=== PATIENT | male | born 1995 | race Caucasian/White ===

== ENCOUNTER 2017-11-20 15:28 | Emergency (ER) | payer OTHER ==
[~2017-11-20] VITALS: Ht 177.8 cm; Wt 62.1 kg
[2017-11-20 15:34] VITALS: Ht 177.8 cm; Wt 62.1 kg
[2017-11-20] MEDS ORDERED: ONDANSETRON INJ 2 MG/ML 2 ML VIAL IV STA (15:53)
--- NOTE | 2017-11-20 15:55 | EMERGENCY ROOM VISIT NOTE ---
ED Visit Note First contact with patient: 15:40 This Patient was discussed with the physician cataloging assistant, Marcelo Kline PA-C. The pertinent historical and physical exam findings were confirmed. I agree with the studies ordered and with the interpretations of these studies. I agree with the disposition and care plan.
[2017-11-20] MEDS ORDERED: MoRPHine SULFATE 4 MG/ML 1 ML CARP\\VIAL IV ONE (16:00)
[2017-11-20] MEDS ORDERED: SODIUM CHLORIDE 0.9% 1000ML 1,000 ML IV ONE (16:00)
[2017-11-20 16:08] LABS: BASO % 0.2 %; BASO ABS # 0.02 K/uL (0-0.2); EOS % 0.2 %; EOS ABS # 0.02 K/uL (0-0.5); HEMATOCRIT 42.4 % (42-52); HEMOGLOBIN 15.4 g/dL (14.0-18.0); IG# 0.01 K/uL (0.00-0.02); LYMPH % 13.8 %; LYMPH ABS # 1.35 K/uL (1.2-3.4); MEAN CELL VOLUME 87.2 fL (80-100); MEAN CORPUSCULAR HEMOGLOBIN 31.7 pg (25-34); MEAN CORPUSCULAR HGB CONC 36.3 g/dl (32-36); MEAN PLATELET VOLUME 9.8 fL (7.4-10.4); MONO ABS # 0.88 K/uL (0.11-0.59); NEUT % 76.7 %; NEUT ABS # 7.49 K/uL (1.4-6.5); PLATELET COUNT 155 K/uL (130-400); RED CELL DISTRIBUTION WIDTH CV 12.2 % (11.5-14.5); RED CELL DISTRIBUTION WIDTH SD 39.5 fL (36.4-46.3); WHITE BLOOD COUNT 9.77 K/uL (4.8-10.8)
[2017-11-20] MEDS ORDERED: CIPROFLOXACIN 400MG / 200ML D5W IV ONE (16:30)
[2017-11-20 16:34] LABS: ALBUMIN 4.3 gm/dl (3.4-5.0); CALCIUM 8.8 mg/dl (8.5-10.1); CREATININE 0.85 mg/dl (0.60-1.40); POTASSIUM 3.4 mmol/L (3.5-5.1)
--- NOTE | 2017-11-20 16:35 | DIAGNOSTIC IMAGING REPORT ---
TESTICULAR ULTRASOUND HISTORY: right testicle pain COMPARISON: None. FINDINGS: Right testis: 3.0 x 4.2 x 2.8 cm. The testis is diffusely heterogeneous and does not demonstrate color flow. Therefore, this is consistent with testicular torsion. The epididymis is not well visualized. Trace hydrocele. Left testis: 4.2 x 3.0 x 2.8 cm. There are no intratesticular masses. Normal color flow. No hydrocele. The epididymis is unremarkable. IMPRESSION: Diffusely heterogeneous and abnormal appearing right testis without demonstrable color flow. Therefore, this is consistent with testicular torsion. These findings were discussed with the patient's physician assistant hairstylist, Marcelo Kline, at 4:33 PM on 11/20/2017. Electronically signed by: Lee Cardenas M.D. 11/20/2017 4:33 PM Dictated Date/Time: 11/20/2017 4:30 PM
[2017-11-20 16:39] LABS: TOTAL PROTEIN 7.9 gm/dl (6.4-8.2)
[2017-11-20] MEDS ORDERED: LIDOCAINE HCL 1% 20 ML VIAL ONE (16:40)
[2017-11-20] MEDS ORDERED: CEFAZOLIN SOD 1 GM VIAL ONE (16:41)
[2017-11-20] MEDS ORDERED: LIDOCAINE HCL 2% 2 ML VIAL (20MG/ML) ONE (16:42)
[2017-11-20] MEDS ORDERED: FENTANYL CITRATE INJ 50 MCG/1 ML 2 ML VIAL ONE ×2 (16:42→17:54)
[2017-11-20] MEDS ORDERED: PROPOFOL IV EMULSION 10 MG/ML 20 ML VIAL IV ONE (16:42)
[2017-11-20] MEDS ORDERED: MIDAZOLAM HCL 1 MG/ML 2ML VIAL ONE (16:42)
[2017-11-20 16:45] VITALS: O2SAT 100
[2017-11-20] MEDS ORDERED: CIPROFLOXACIN 400MG / 200ML D5W ONE (16:54)
[2017-11-20] MEDS ORDERED: ATROPINE SULFATE 0.1 MG/ML 5ML SYR IV PRN (17:15)
[2017-11-20] MEDS ORDERED: EpHEDrine SULFATE INJ 50 MG/ML AMP IV PRN (17:15)
[2017-11-20] MEDS ORDERED: HYDROmorphone INJ 1 MG/ML SYR IV PRN (17:15)
[2017-11-20] MEDS ORDERED: FENTANYL CITRATE INJ 50 MCG/1 ML 2 ML VIAL IV PRN (17:15)
[2017-11-20] MEDS ORDERED: ONDANSETRON INJ 2 MG/ML 2 ML VIAL IV PRN (17:15)
--- NOTE | 2017-11-20 17:17 | History and Physical ---
History & Physical Date Nov 20, 2017. Chief Complaint 22-year-old white male with a 2 day history of right testicular pain and swelling. He said Monday morning he awoke and had right testicular pain which was severe he said he was able to walk around and the pain got somewhat less again came back. He denies any voiding problems. The pain became severe enough that he came to the emergency room. Scrotal ultrasound was done which shows what appears to be a right testicular torsion. There is no blood flow to the right testicle left testicle looks normal History of Present Illness The patient is a 22 year old male with complaints of Additional History Hepatic Disease: No Endocrine Disorder: No Kidney Disease: No Hypertension: No Heart Disease: No Bleeding Tendencies: No Infectious Diseases: No Allergies Coded Allergies: No Known Allergies (Unverified , 11/20/17) Home Medications No Active Prescriptions or Reported Meds Physical Examination Skin: warm/dry Eyes: normal inspection ENT: normal ENT inspection Head: normocephalic, atraumatic Neck: supple Respiratory/Chest: lungs clear, normal breath sounds, no respiratory distress Cardiovascular: regular rate, rhythm, no murmur Abdomen / GI: normal bowel sounds Addiitonal Comments: Right testicle is extremely tender and swollen left side is normal Diagnosis Assessment Testicular torsion Plan of Treatment Plan We will take patient to the OR for emergent right scrotal exploration possible orchidopexy and left orchidopexy I did explain to him that after 48 hours the testicle may not be viable if it appears that there is no opportunity to salvage the right testicle we would do an orchiectomy on that side and then do a left orchidopexy described the procedure including the risks and benefits and all of his questions were answered he agrees to proceed
[2017-11-20] MEDS ORDERED: DEXAMETHASONE SOD INJ 4 MG/ML VIAL ONE (17:49)
[2017-11-20] MEDS ORDERED: ONDANSETRON INJ 2 MG/ML 2 ML VIAL ONE (17:49)
[2017-11-20] MEDS ORDERED: MEPERIDINE HCL 25 MG/ML CARP IV PRN (18:30)
[2017-11-20] MEDS ORDERED: MEPERIDINE HCL 25 MG/ML CARP ONE (18:30)
[2017-11-20] MEDS ORDERED: OXYC-57 PO (18:33)
--- NOTE | 2017-11-20 18:33 | [facility] Post Operative Brief Note ---
Immediate Operative Summary Operative Date Nov 20, 2017. Pre-Operative Diagnosis Testicular torsion Post-Operative Diagnosis Right Testicular Torsion Procedure(s) Performed Right Scrotal Exploration, Bilateral Orchiopexy Surgeon Dr. Jad Yoder Director [employer] Surgeon(s) Dr. Sridhar Burks Estimated Blood Loss 5ml Findings Consistent with Post-Op Diagnosis Specimens none per surgeon Drains None Anesthesia Type General Complication(s) none Disposition Accompanied Pt To Recover: yes Disposition: Recovery Room / PACU
--- NOTE | 2017-11-20 18:35 | Discharge Instructions ---
Discharge Instructions Date of Service Nov 20, 2017. Visit Reason for Visit: Lack Of Blood Supply On Right Testicle Discharge Discharge Diagnosis / Problem: testicular torsion Discharge Goals Goal(s): Therapeutic intervention Activity Recommendations Activity Limitations: per Instructions/Follow-up section Lifting Limitations: gradually increase as tolerated Exercise/Sports Limitations: until after follow-up appointment May Resume Sexual Activity: after follow-up appointment Shower/Bathe: tomorrow Driving or Machine Use: resume 3 days after discharge Anesthesia . Post Anesthesia Instructions: If you have had General Anesthesia or IV Sedation: * Do not drive today. * Resume driving when surgeon permits. * Do not make important decisions or sign legal documents today. * Call surgeon for: 1. Temperature elevations greater than 101 degrees F. 2. Uncontrollable pain. 3. Excessive bleeding. 4. Persistent nausea and vomiting. 5. Medication intolerance (nausea, vomiting or rash). * For nausea and vomiting use only clear liquids such as: tea, soda, bouillon until nausea subsides, then gradually increase diet as tolerated. * If you have any concerns or questions, call your surgeon's office. If physician is unavailable and it is an emergency, call 911 or go to the nearest emergency room. . Diet Recommendations Recommended Home Diet: resume previous diet Procedures Procedures Performed: Right Scrotal Exploration, Bilateral Orchiopexy Pending Studies Studies pending at discharge: no Medical Emergencies . Who to Call and When: Medical Emergencies: If at any time you feel your situation is an emergency, please call 911 immediately. . Non-Emergent Contact Non-Emergency issues call your: Urologist Call Non-Emergent contact if: temperature is above 101.5, your pain is not controlled . . "Provider Documentation" section prepared by Jad Yoder. . [place] Drug Monitoring Program Search Results: patient reviewed within database
[2017-11-20] MEDS ORDERED: OXYCODONE/ACETAMINOPHEN 5-325 TAB PO PRN (18:45)
--- NOTE | 2017-11-20 19:05 | Anesthesiology Progress Note ---
Anesthesia Post Op Note Date & Time Nov 20, 2017 at 19:05 Vital Signs Pain Intensity: 0 Vital Signs Past 12 Hours Date Time Temp Pulse Resp B/P (MAP) Pulse Ox O2 Delivery O2 Flow Rate FiO2 11/20/17 18:55 36.8 80 15 124/72 95 11/20/17 18:45 88 14 134/72 96 11/20/17 18:35 98 16 111/71 100 Oxymask 3 11/20/17 18:29 36.3 115 16 109/77 100 Oxymask 5 11/20/17 16:45 68 16 131/77 100 11/20/17 16:35 68 16 131/77 100 Room Air 11/20/17 15:34 36.4 81 16 137/82 99 Room Air Notes Mental Status: alert / awake / arousable, participated in evaluation Pt Amnestic to Procedure: Yes Nausea / Vomiting: adequately controlled Pain: adequately controlled Airway Patency, RR, SpO2: stable & adequate BP & HR: stable & adequate Hydration State: stable & adequate Anesthetic Complications: no major complications apparent
[2017-11-20 19:13] VITALS: BP 152/65; PULSE 95; TEMP 37; O2SAT 98
[2017-11-20 19:40] VITALS: BP 158/75; PULSE 83; TEMP 37.2; O2SAT 99
--- NOTE | 2017-11-20 20:24 | EMERGENCY ROOM VISIT NOTE ---
History First contact with patient: 15:40 Chief Complaint: TESTICULAR PAIN Stated Complaint: LACK OF BLOOD SUPPLY ON RIGHT TESTICLE Nursing Triage Summary: Patient ambulatory to triage with an upright and steady gait, states "Monday morning, I woke up with pain in my right lower abdominal area that went into my back and right testicle. I went to Urgent Care and they thought it could be an appendicitis. I waited it out. I went to the [facility] office and was seen by a doctor there this morning. I then had an US at [facility]. I was told to come here as there is no blood flow to my right testicle." History of Present Illness The patient is a 22 year old male who presents to the Emergency Room with complaints of right testicle pain for the past 2 days. The patient states that his symptoms began around 8 AM Monday. He states at that time the pain was a severe 10/10. After about 4 hours the pain subsided to a dull 6/10, where it has remained. He went to an urgent care clinic yesterday, where they thought it could be appendicitis. The patient was not convinced and decided to wait his symptoms out at home. He did schedule an appointment today with his primary care physician at [facility], where ultrasound was performed, and was concerning for no blood flow to the right testicle. The patient has not had fever or chills. He has not had anything to eat or drink in greater than 16 hours. No history of chronic symptoms. Review of Systems More than 10 systems were reviewed and otherwise negative with the exception of history of present illness. Past Medical/Surgical History No chronic medical disease Family History No pertinent family history Social History Smoking Status: Never Smoker Current/Historical Medications Scheduled PRN Oxycodone/Acetaminophen 5MG/325MG (Percocet 5MG/325MG), 1-2 TABLETS PO Q4H PRN for Pain Physical Exam Vital Signs Date Time Temp Pulse Resp B/P (MAP) Pulse Ox O2 Delivery O2 Flow Rate FiO2 11/20/17 19:40 37.2 83 18 158/75 99 Room Air 11/20/17 19:13 37.0 95 18 152/65 98 Room Air 11/20/17 19:05 84 16 125/70 95 11/20/17 18:55 36.8 80 15 124/72 95 11/20/17 18:45 88 14 134/72 96 11/20/17 18:35 98 16 111/71 100 Oxymask 3 11/20/17 18:29 36.3 115 16 109/77 100 Oxymask 5 11/20/17 16:45 68 16 131/77 100 11/20/17 16:35 68 16 131/77 100 Room Air 11/20/17 15:34 36.4 81 16 137/82 99 Room Air Physical Exam VITALS: Vitals are noted on the nurse's note and reviewed by myself. Vital signs stable. GENERAL: Well-developed, well-nourished, white male who is in moderate to severe discomfort. He is cooperative with the examination. HEART: Regular rate and rhythm without murmurs gallops or rubs. LUNGS: Clear to auscultation bilaterally without wheezes, rales or rhonchi. No retractions or accessory muscle use. ABDOMEN: Positive normal bowel sounds x 4. Soft, nontender, without masses or organomegaly. No guarding or rebound tenderness. : The right side testicle is exquisitely tender, erythematous, and moderately edematous. Exam is limited secondary to tenderness. Right testicle is high riding and horizontal. Left testicle appears normal. Medical Decision & Procedures Laboratory Results 11/20/17 15:52 Red Blood Count 4.86, Mean Corpuscular Volume 87.2, Mean Corpuscular Hemoglobin 31.7, Mean Corpuscular Hemoglobin Concent 36.3, Mean Platelet Volume 9.8, Neutrophils (%) (Auto) 76.7, Lymphocytes (%) (Auto) 13.8, Monocytes (%) (Auto) 9.0, Eosinophils (%) (Auto) 0.2, Basophils (%) (Auto) 0.2, Neutrophils # (Auto) 7.49, Lymphocytes # (Auto) 1.35, Monocytes # (Auto) 0.88, Eosinophils # (Auto) 0.02, Basophils # (Auto) 0.02 11/20/17 15:52 Test 11/20/17 15:52 White Blood Count 9.77 K/uL (4.8-10.8) Red Blood Count 4.86 M/uL (4.7-6.1) Hemoglobin 15.4 g/dL (14.0-18.0) Hematocrit 42.4 % (42-52) Mean Corpuscular Volume 87.2 fL (80-100) Mean Corpuscular Hemoglobin 31.7 pg (25-34) Mean Corpuscular Hemoglobin Concent 36.3 g/dl (32-36) Platelet Count 155 K/uL (130-400) Mean Platelet Volume 9.8 fL (7.4-10.4) Neutrophils (%) (Auto) 76.7 % Lymphocytes (%) (Auto) 13.8 % Monocytes (%) (Auto) 9.0 % Eosinophils (%) (Auto) 0.2 % Basophils (%) (Auto) 0.2 % Neutrophils # (Auto) 7.49 K/uL (1.4-6.5) Lymphocytes # (Auto) 1.35 K/uL (1.2-3.4) Monocytes # (Auto) 0.88 K/uL (0.11-0.59) Eosinophils # (Auto) 0.02 K/uL (0-0.5) Basophils # (Auto) 0.02 K/uL (0-0.2) RDW Standard Deviation 39.5 fL (36.4-46.3) RDW Coefficient of Variation 12.2 % (11.5-14.5) Immature Granulocyte % (Auto) 0.1 % Immature Granulocyte # (Auto) 0.01 K/uL (0.00-0.02) Anion Gap 7.0 mmol/L (3-11) Est Creatinine Clear Calc Drug Dose 119.7 ml/min Estimated GFR () 143.4 Estimated GFR (Non- 123.7 BUN/Creatinine Ratio 11.6 (10-20) Calcium Level 8.8 mg/dl (8.5-10.1) Total Bilirubin 1.5 mg/dl (0.2-1) Aspartate Amino Transf (AST/SGOT) 23 U/L (15-37) Alanine Aminotransferase (ALT/SGPT) 22 U/L (12-78) Alkaline Phosphatase 123 U/L (45-117) Total Protein 7.9 gm/dl (6.4-8.2) Albumin 4.3 gm/dl (3.4-5.0) Globulin 3.6 gm/dl (2.5-4.0) Albumin/Globulin Ratio 1.2 (0.9-2) Medications Administered Medications (Trade) Dose Ordered Sig/Annabelle Route Start Time Stop Time Status Last Admin Dose Admin Morphine Sulfate (MoRPHine SULFATE INJ) 4 mg NOW ONCE IV 11/20/17 16:00 11/20/17 16:01 DC 11/20/17 16:02 4 MG Ondansetron HCl (Zofran Inj) 4 mg NOW STAT IV 11/20/17 15:53 11/20/17 15:54 DC 11/20/17 16:01 4 MG Sodium Chloride 1,000 ml @ 999 mls/hr Q1H1M ONCE IV 11/20/17 16:00 11/20/17 17:00 DC 11/20/17 16:01 999 MLS/HR Lidocaine HCl (Xylocaine 1% Inj (Local)) 20 ml STK-MED ONCE .ROUTE 11/20/17 16:40 11/20/17 16:41 DC 11/20/17 18:17 10 ML Cefazolin Sodium (Ancef Inj) 1,000 mg STK-MED ONCE .ROUTE 11/20/17 16:41 11/20/17 16:42 DC 11/20/17 18:17 1,000 MG Ciprofloxacin/ Dextrose (Cipro / D5W) 400 mg STK-MED ONCE .ROUTE 11/20/17 16:54 11/20/17 16:55 DC 11/20/17 17:26 400 MG Meperidine HCl (Demerol Inj) 25 mg STK-MED ONCE .ROUTE 11/20/17 18:30 11/20/17 18:31 DC 11/20/17 18:30 12.5 MG ED Course Physical exam and history were performed. Nursing notes, EMR, and Medication List were personally reviewed. Patient appears to have right testicle pain for the past 2 days. He had an outpatient ultrasound showing "no flow" to his right testicle at [facility]. On examination he has severe tenderness with edema and discoloration of the right testicle. There is significant concern for testicular torsion. IV access was established and labs are obtained. The patient was hydrated and medicated as well. He was placed n.p.o. The case was immediately discussed with my attending physician, Dr. Mcnair, who also independently evaluated the patient. We did attempt to manually detorse the right testicle with minimal success. I emergently contacted urology, who recommended a stat ultrasound be performed here at the hospital. Ultrasound was ordered, and I received a call back from urology almost immediately after the ultrasound was performed confirming that he did have right sided torsion on ultrasound. I discussed results of testing with the patient, and answered his questions to the best of my capacity. The patient will be evaluated here in the ER by urology, who is also prepping the OR for emergent surgical intervention. Please see the urology notes for further patient course, plan, and disposition. The chart was completed utilizing [employer] Speech Voice Recognition Software. Grammatical errors, random word insertions, pronoun errors, and incomplete sentences are an occasional consequence of this system due to software limitations, ambient noise, and hardware issues. Any formal questions or concerns about the content, text, or information contained within the body of this dictation should be directly addressed to the provider for clarification. . Medical Decision Differential diagnosis: Etiologies such as torsion, mass, infection, hernia, hydrocele, epididymitis, trauma, intra-abdominal process, as well as others were entertained. Impression Primary Impression: Right testicular torsion Departure Information Prescriptions Oxycodone/Acetaminophen 5MG/325MG (PERCOCET 5MG/325MG) Tab 1-2 TABLETS PO Q4H Y for Pain, #30 TAB Prov: Jad Yoder MD 11/20/17 Referrals Jagjit Rodriguez III, M.D. (PCP) Patient Instructions My [facility]
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
== END 2017-11-20 19:56 | disposition home or self-care (01) ==
LOC: C.EDB 15:30 → C.EDD 19:56
DX: N44.00 Torsion of testis, unspecified (principal); R73.03 Prediabetes

== ENCOUNTER 2017-11-27 23:19 | Emergency (ER) | payer OTHER ==
[~2017-11-27] VITALS: Ht 177.8 cm; Wt 62.6 kg
[~2017-11-27 23:19] MED LIST: OXYC-57 PO
[2017-11-27 23:22] VITALS: TEMP 37; Ht 177.8 cm; Wt 62.6 kg
--- NOTE | 2017-11-27 23:40 | EMERGENCY ROOM VISIT NOTE ---
History Report prepared by Chirag: Ya Mason Under the Supervision of: Dr. Umer Stringer M.D. First contact with patient: 23:28 Chief Complaint: TESTICULAR PAIN Stated Complaint: POSSIBLE ISSUE W/POST TESTICULAR SURGERY History of Present Illness The patient is a 22 year old male who presents to the Emergency Room with complaints of testicular pain beginning at 2200 tonight. He rates the pain at a 4/10, but states that he took a Percocet prior to arrival. He rates the pain at a 6/10 prior to taking the Percocet. The patient reports that he had a procedure 1 week ago for testicular torsion, and states that the pain he is having tonight is the type of pain he felt before the surgery, which he describes as a dull ache. The patient denies having urinary symptoms, fevers, vomiting, and diarrhea. Source of History: patient Onset: 2200 tonight Position: other (testicles ) Symptom Intensity: rated at a 6/10 Quality: other (dull ache) Associated Symptoms: No fevers, No vomiting, No diarrhea, No urinary symptoms Review of Systems See HPI for pertinent positives & negatives. A total of 10 systems reviewed and were otherwise negative. Past Medical & Surgical Surgical Problems: (1) Testicular torsion Family History No pertinent family history Social History Smoking Status: Never Smoker Marital Status: single Occupation Status: [employer] student Current/Historical Medications Scheduled Cefdinir (Omnicef), 300 MG PO Q12H Scheduled PRN Oxycodone/Acetaminophen 5MG/325MG (Percocet 5MG/325MG), 1-2 TABLETS PO Q4H PRN for Pain Allergies Coded Allergies: No Known Allergies (Unverified , 11/27/17) Physical Exam Vital Signs Date Time Temp Pulse Resp B/P (MAP) Pulse Ox O2 Delivery O2 Flow Rate FiO2 11/28/17 02:34 72 20 124/80 98 Room Air 11/28/17 01:03 82 20 131/74 98 Room Air 11/27/17 23:22 37.0 76 16 158/84 99 Room Air Physical Exam GENERAL: Patient is in no acute distress. HEENT: No acute trauma, normocephalic atraumatic, mucous membranes moist, no nasal congestion, no scleral icterus. NECK: No stridor, no adenopathy, no meningismus, trachea is midline. LUNGS: Clear to auscultation bilaterally, no wheeze, no rhonchi, breath sounds equal. HEART: Without murmurs gallops or rubs, regular rate and rhythm. ABDOMEN: Soft, nontender, bowel sounds positive, no hernias, no peritonitis. EXTREMITIES: No cyanosis or edema, full range of motion of all the joints without pain or difficulty, no signs for acute trauma. NEUROLOGIC: Oriented x 3, no acute motor or sensory deficits, no focal weakness. SKIN: No rash, no jaundice, no diaphoresis. GROIN: Circumcised. Sutures to the mid portion of the scrotum which are intact. There is erythema to the scrotum, especially to the right. The right scrotum is firm and tender to touch. Left testicle is nontender and normal size. Medical Decision & Procedures ER Provider Diagnostic Interpretation: Radiology results as stated below per my review and [facility]. US SCROTAL: Heterogeneous right testicle with absent vascularity, concerning for torsion. Complex 1.1 cm in lesion in the right testicle without evidence of vascularity, unclear etiology. Enlarged heterogeneous right epididymis with increased vascularity. Unremarkable left testicle with flow visualized. Left varicocele. Laboratory Results 11/27/17 23:48 Red Blood Count 4.71, Mean Corpuscular Volume 88.5, Mean Corpuscular Hemoglobin 32.1, Mean Corpuscular Hemoglobin Concent 36.2, Mean Platelet Volume 9.5, Neutrophils (%) (Auto) 57.8, Lymphocytes (%) (Auto) 31.5, Monocytes (%) (Auto) 9.1, Eosinophils (%) (Auto) 1.1, Basophils (%) (Auto) 0.4, Neutrophils # (Auto) 4.11, Lymphocytes # (Auto) 2.24, Monocytes # (Auto) 0.65, Eosinophils # (Auto) 0.08, Basophils # (Auto) 0.03 11/27/17 23:48 Test 11/27/17 23:48 White Blood Count 7.12 K/uL (4.8-10.8) Red Blood Count 4.71 M/uL (4.7-6.1) Hemoglobin 15.1 g/dL (14.0-18.0) Hematocrit 41.7 % (42-52) Mean Corpuscular Volume 88.5 fL (80-100) Mean Corpuscular Hemoglobin 32.1 pg (25-34) Mean Corpuscular Hemoglobin Concent 36.2 g/dl (32-36) Platelet Count 248 K/uL (130-400) Mean Platelet Volume 9.5 fL (7.4-10.4) Neutrophils (%) (Auto) 57.8 % Lymphocytes (%) (Auto) 31.5 % Monocytes (%) (Auto) 9.1 % Eosinophils (%) (Auto) 1.1 % Basophils (%) (Auto) 0.4 % Neutrophils # (Auto) 4.11 K/uL (1.4-6.5) Lymphocytes # (Auto) 2.24 K/uL (1.2-3.4) Monocytes # (Auto) 0.65 K/uL (0.11-0.59) Eosinophils # (Auto) 0.08 K/uL (0-0.5) Basophils # (Auto) 0.03 K/uL (0-0.2) RDW Standard Deviation 39.4 fL (36.4-46.3) RDW Coefficient of Variation 12.2 % (11.5-14.5) Immature Granulocyte % (Auto) 0.1 % Immature Granulocyte # (Auto) 0.01 K/uL (0.00-0.02) Urine Color YELLOW Urine Appearance CLOUDY (CLEAR) Urine pH 6.5 (4.5-7.5) Urine Specific [place] 1.020 (1.000-1.030) Urine Protein NEG (NEG) Urine Glucose (UA) NEG (NEG) Urine Ketones NEG (NEG) Urine Occult Blood NEG (NEG) Urine Nitrite NEG (NEG) Urine Bilirubin NEG (NEG) Urine Urobilinogen NEG (NEG) Urine Leukocyte Esterase NEG (NEG) Urine WBC (Auto) 1-5 /hpf (0-5) Urine RBC (Auto) 0-4 /hpf (0-4) Urine Hyaline Casts (Auto) 1-5 /lpf (0-5) Urine Epithelial Cells (Auto) 5-10 /lpf (0-5) Urine Bacteria (Auto) NEG (NEG) Anion Gap 9.0 mmol/L (3-11) Est Creatinine Clear Calc Drug Dose 119.3 ml/min Estimated GFR () 142.7 Estimated GFR (Non- 123.1 BUN/Creatinine Ratio 17.7 (10-20) Calcium Level 9.1 mg/dl (8.5-10.1) Laboratory results reviewed by me. Medications Administered Medications (Trade) Dose Ordered Sig/Annabelle Route Start Time Stop Time Status Last Admin Dose Admin Ceftriaxone Sodium (Rocephin Inj) 1 gm NOW STAT IV 11/28/17 01:47 11/28/17 01:48 DC 11/28/17 01:56 1 GM ED Course 2330: The patient was evaluated in room B5. A complete history and physical exam was performed. 0130: Discussed the patient's case with Dr. Lehman. The patient will be evaluated for further management. 0147: Ordered Rocephin Inj 1 gm IV. 0152: Reevaluated the patient. Discussed results and discharge instructions: He verbalized understanding and agreement. The patient is ready for discharge. Medical Decision The patient is a 22 year old male who presents to the ED with complaints of testicular pain. Differential diagnoses considered include hematoma, epididymitis, orchitis, testicular torsion, hernia, cellulitis, and UTI. There is no leukocytosis or concerning anemia. No significant electrolyte abnormality or kidney failure. Urinalysis does not show infection. Testicular ultrasound shows no flow to the right testicle and there was concern for possible infection/inflammation in the right hemiscrotum. On exam, the patient' s right hemiscrotum was slightly erythematous. He was not febrile, he was not toxic. He was in no significant distress. I discussed the case with the urologist director business integration. The urologist spoke to the patient over the phone about different options. The patient has chosen to be discharged on antibiotics and to follow-up in the outpatient office. He will likely require a repeat surgery as it appears his right testicle has not survived the initial torsion diagnosed on the , a week ago. The patient understands the findings. The patient was given a dose of IV ceftriaxone, he is being discharged on Omnicef. He was encouraged to return for worsening pain, vomiting or fever. Medication Reconcilliation Current Medication List: was personally reviewed by me Blood Pressure Screening Patient's blood pressure: Elevated blood pressure Blood pressure disposition: Elevated BP felt to be situational Consults Time Called: 0125 Consulting Physician: Dr. Lehman-Urology Returned Call: 0130 Discussed the patient's case. The patient will be evaluated for further management. Impression Primary Impression: Right testicular pain Additional Impressions: Testicular torsion Cellulitis of scrotum Scribe Attestation The scribe's documentation has been prepared under my direction and personally reviewed by me in its entirety. I confirm that the note above accurately reflects all work, treatment, procedures, and medical decision making performed by me. Departure Information Dispostion Home / Self-Care Prescriptions Cefdinir (OMNICEF) 300 Mg Cap 300 MG PO Q12H for 10 Days, #20 CAP Prov: Umer Stringer M.D. 11/28/17 Referrals Jagjit Rodriguez III, M.D. (PCP) Forms HOME CARE DOCUMENTATION FORM, IMPORTANT VISIT INFORMATION, WORK / SCHOOL INSTRUCTIONS Patient Instructions My [facility] Additional Instructions omnicef 2x per day for 10 days supportive underwear use the percocet as before for pain as needed return for fever, increasing pain or vomiting be sure to follow with urology in 24-48 hours Problem Qualifiers
[2017-11-28 00:04] LABS: BASO % 0.4 %; BASO ABS # 0.03 K/uL (0-0.2); EOS % 1.1 %; EOS ABS # 0.08 K/uL (0-0.5); HEMATOCRIT 41.7 % (42-52); HEMOGLOBIN 15.1 g/dL (14.0-18.0); IG# 0.01 K/uL (0.00-0.02); LYMPH % 31.5 %; LYMPH ABS # 2.24 K/uL (1.2-3.4); MEAN CELL VOLUME 88.5 fL (80-100); MEAN CORPUSCULAR HEMOGLOBIN 32.1 pg (25-34); MEAN CORPUSCULAR HGB CONC 36.2 g/dl (32-36); MEAN PLATELET VOLUME 9.5 fL (7.4-10.4); MONO % 9.1 %; MONO ABS # 0.65 K/uL (0.11-0.59); NEUT % 57.8 %; NEUT ABS # 4.11 K/uL (1.4-6.5); PLATELET COUNT 248 K/uL (130-400); RED CELL DISTRIBUTION WIDTH CV 12.2 % (11.5-14.5); RED CELL DISTRIBUTION WIDTH SD 39.4 fL (36.4-46.3); WHITE BLOOD COUNT 7.12 K/uL (4.8-10.8)
[2017-11-28 00:27] LABS: CALCIUM 9.1 mg/dl (8.5-10.1); CREATININE 0.86 mg/dl (0.60-1.40); POTASSIUM 3.7 mmol/L (3.5-5.1)
[2017-11-28] MEDS ORDERED: CEFTRIAXONE SOD INJ 1 GM ADDVIAL IV STA (01:47)
[2017-11-28] MEDS ORDERED: CEFD300C2 PO (01:54)
[2017-11-28 02:34] VITALS: BP 124/80; PULSE 72; O2SAT 98
--- NOTE | 2017-11-28 07:02 | DIAGNOSTIC IMAGING REPORT ---
(TESTICULAR) SCROTUM-CONT CLINICAL HISTORY: 22 years-old Male presenting with torsion---return of pain. TECHNIQUE: Real-time grayscale and color and spectral Doppler ultrasound imaging of the scrotum was performed. COMPARISON: 11/20/2017. FINDINGS: Right testis: Enlarged and diffusely and homogeneously hypoechogenic. Focal avascular peripherally hypoechoic, centrally anechoic intraparenchymal irregular region measuring 11 x 7 x 11 mm. Testis measures 3.5 x 2.2 x 2.7 cm. No internal color Doppler flow or arterial and venous waveforms in the testicular parenchyma. Enlarged and heterogeneous appearing epididymal head with hyperemia. The spermatic cord is hyperemic. No hydrocele. Left testis: Normal echogenicity and echotexture. Testis measures 4.2 x 1.5 x 2.2 cm. Normal color Doppler flow and arterial and venous waveforms in the testicular parenchyma. Epididymal head normal. No hydrocele. Varicocele present. IMPRESSION: 1. Findings consistent with right testicular torsion. There has been interval evolution of the appearance of the right testis with diffuse parenchymal edema and persistent lack of blood flow to the testis. Additionally, there is a new intraparenchymal collection, which may represent a focal necrosis or, less likely, developing abscess. Close clinical and imaging follow-up recommended. 2. Hyperemia of the epididymal head and spermatic cord is likely reactive to reperfusion. 3. No left testicular torsion. 4. Left varicocele. The report will be called/faxed according to standard departmental protocol. Electronically signed by: Kyree Clements M.D. 11/28/2017 7:01 AM Dictated Date/Time: 11/28/2017 6:54 AM
== END 2017-11-28 02:55 | disposition home or self-care (01) ==
LOC: C.EDB 23:20
DX: N50.811 Right testicular pain (principal); N44.00 Torsion of testis, unspecified; I86.1 Scrotal varices; N49.2 Inflammatory disorders of scrotum